=== PATIENT | female | born 1995 | race Caucasian/White ===

== ENCOUNTER 2024-04-29 14:14 | Emergency (ER) | payer MEDICAID, OTHER ==
[~2024-04-29] VITALS: Ht 160 cm; Wt 55.5 kg
[2024-04-29] MEDS: ONDANSETRON ODT 4 MG TAB PO ONE (16:07)
[2024-04-29] MEDS: KETOROLAC TROMETH 60MG/2ML VIAL IM ONE (16:08)
[2024-04-29 16:13] VITALS: TEMP 98.3
[2024-04-29 16:14] LABS: Urine Bacteria FEW /hpf (None Seen); Urine Blood 3+ /uL (Negative); Urine Clarity Turbid (Clear); Urine Color Colorless (Yellow); Urine Mucus FEW (None Seen); Urine Protein, UAD 2+ (Negative); Urine Specific Gravity 1.015 (1.001-1.035); Urine Urobilinogen Normal (Negative); Urine WBC 513 /hpf (0 - 5); Urine WBC Clumps PRESENT /hpf (None Seen); Urine pH 5.5 (5.0-9.0)
[2024-04-29 16:21] LABS: Basophils # (auto) 0.1 10 ^3/uL (0-0.2); Basophils % (auto) 0.4 % (0.0-2.0); Eosinophils # (auto) 0 10 ^3/uL (0-0.8); Eosinophils % (auto) 0.1 % (0.0-7.0); Hematocrit 35.6 % (36.0-46.0); Hemoglobin 12.1 g/dL (12.2-16.2); Lymphocytes # (auto) 1.4 10 ^3/uL (0.4-5.4); Lymphocytes % (auto) 10.1 % (10.0-50.0); Mean Corpuscular Hemoglobin 27.5 pg (28.0-32.0); Mean Corpuscular Hgb Conc. 33.9 g/dL (32.0-36.0); Monocytes # (auto) 0.6 10 ^3/uL (0-1.3); Monocytes % (auto) 4.3 % (0.0-12.0); Neutrophils # (auto) 12.1 10 ^3/uL (1.6-8.6); Neutrophils % (auto) 85.1 % (37.0-80.0); Red Cell Distribution Width 14.6 % (11.8-14.3); White Blood Cell 14.2 10^3/uL (4.4-10.8)
[2024-04-29 16:37] LABS: Alanine Aminotransferase 15 U/L (7-40); Alkaline Phosphatase 51 U/L (46-116); Anion Gap 8 (5-15); Blood Urea Nitrogen 12 mg/dL (9-23); Calcium 10.1 mg/dL (8.7-10.4); Carbon Dioxide 23 mmol/L (20-30); Chloride 107 mmol/L (98-107); Glucose 101 mg/dL (74-106); Sodium 138 mmol/L (136-145)
[2024-04-29 16:38] LABS: Albumin 4.5 g/dL (3.2-4.8); Aspartate Aminotransferase < 8 U/L (13-40); Bilirubin, Total 0.9 mg/dL (0.2-1.0); Total Protein 7.9 g/dL (5.7-8.2)
[2024-04-29] MEDS: cefTRIAXone W LIDOCAINE 1 GM IM IM ONE (17:30)
[2024-04-29] MEDS ORDERED: CEPH250C PO (17:48)
[2024-04-29] MEDS ORDERED: HYDR-4902 PO (17:48)
[2024-04-29 18:10] VITALS: BP 106/58; PULSE 72; RESP 22; O2SAT 96
== END 2024-04-29 19:37 | disposition home or self-care (01) ==
LOC: ER 14:14
DX: N12 Tubulo-interstitial nephritis, not specified as acute or chronic (principal); R10.2 Pelvic and perineal pain
CPT/HCPCS: 36415; 74176; 80053; 81001; 84702; 85025; 87086; 87088; 87186; 96372; 99285; J0696; J1885; Q0162